=== PATIENT | male | born 1990 | race African-American/Black ===

== ENCOUNTER 2018-12-22 05:16 | Emergency (ER) | payer OTHER ==
[2018-12-22] MEDS ORDERED: IOVERSOL 320 100 ML VIAL IVP ONE ×3 (05:17→06:31)
--- NOTE | 2018-12-22 05:31 | ED Physician Documentation ---
PD HPI NECK PAIN - Stated complaint Stated Complaint: NECK PX - Chief complaint Chief Complaint: Wound - History obtained from History obtained from: Patient - History of Present Illness Timing - onset: How many days ago (2-3) Timing - duration: Days Timing - details: Gradual onset Pain level now: 6 Location: Upper, Mid, Right Quality: Pain Associated symptoms: No: Fever, Weakness, Numbness, Incontinent of urine, Unable to urinate, Hematuria, Incontinent of stool Improves with: Rest, Position Worsened by: Movement, Palpation Similar symptoms before: Has not had sx before Recently seen: Not recently seen - Additional information Additional information: c/o right-sided upper neck pain and swelling, tenderness. denies trauma, denies h/o similar symptoms. gradual onset 2-3 days ago and gradually progressive. Review of Systems Constitutional: reports: Reviewed and negative Cardiac: reports: Reviewed and negative Respiratory: reports: Reviewed and negative Skin: reports: Reviewed and negative Musculoskeletal: reports: Neck pain PD PAST MEDICAL HISTORY - Past Medical History Past Medical History: No - Past Surgical History Past Surgical History: No - Present Medications Home Medications: Ambulatory Orders Medication Instructions Recorded Confirmed Cephalexin [Keflex] 500 mg PO Q6H #39 capsule 12/22/18 HYDROcod/ACETAM 5/325 [[place] 5/325] 1 - 2 ea PO Q6H PRN #15 tablet 12/22/18 Ibuprofen 600 mg PO Q6HR PRN #20 tablet 12/22/18 Sulfamethox/Trimeth 800/160 1 each PO BID #19 tablet 12/22/18 [Bactrim Ds 800/160] - Allergies Allergies/Adverse Reactions: Allergies Allergy/AdvReac Type Severity Reaction Status Date / Time No Known Drug Allergies Allergy Verified 12/22/18 05:24 - Social History Does the pt smoke?: No Smoking Status: Never smoker Does the pt drink ETOH?: No Does the pt have substance abuse?: No - Immunizations Immunizations are current?: Yes - POLST Patient has POLST: No PD ED PE NORMAL - Vitals Vital signs reviewed: Yes (pulse on my exam is 60-70 bpm) - General General: Alert and oriented X 3, No acute distress, Well developed/nourished - HEENT HEENT: Atraumatic, Moist mucous membranes, Pharynx benign - Neck Neck: Supple, no meningeal sign - Cardiac Cardiac: RRR - Derm Derm: Normal color, Warm and dry, No rash - Neuro Neuro: No motor deficit, No sensory deficit PD ED PE EXPANDED - HEENT HEENT Visual: 1 - swelling, tenderness Results - Vitals Vitals: Vital Signs - 24 hr 12/22/18 12/22/18 12/22/18 05:20 07:09 08:24 Temperature 36.3 C L 37.2 C Heart Rate 9 L 86 78 Respiratory 16 18 15 Rate Blood Pressure 152/94 H 161/97 H 149/95 H O2 Saturation 98 99 100 Oxygen O2 Source Room air - Labs Labs: Laboratory Tests 12/22/18 12/22/18 05:55 05:55 WBC 10.9 H RBC 4.84 Hgb 14.1 Hct 42.6 MCV 88.0 MCH 29.2 MCHC 33.1 RDW 12.9 Plt Count 313 MPV 7.6 Neut # (Auto) 7.5 H Lymph # (Auto) 2.0 [place] # (Auto) 1.2 H Eos # (Auto) 0.1 Baso # (Auto) 0.1 Absolute Nucleated RBC 0.01 Nucleated RBC % 0.1 Sodium 135 Potassium 3.6 Chloride 98 L Carbon Dioxide 26 Anion Gap 11.0 BUN 10 Creatinine 0.8 Estimated GFR (MDRD) 141 Glucose 219 H Calcium 9.3 - Rads (name of study) CT neck (soft tissue) with IV contrast Radiology: Prelim report reviewed, See rad report PD MEDICAL DECISION MAKING - ED course Complexity details: reviewed results, re-evaluated patient, considered differential, d/w patient ED course: afebrile, minimally elevated WBC (0.1 above normal), with significant swelling and tenderness on exam that CT results suggest cellulitis without abscess. Patient advised of these results as well as hyperglycemia Departure - Departure Disposition: 01 Home, Self Care Clinical Impression: Cellulitis Condition: Good Instructions: ED Infec Skin Cellulitis Follow-Up: RENITA Izquierdo [Provider Group] Prescriptions: Ibuprofen 600 mg PO Q6HR PRN #20 tablet PRN Reason: Pain Cephalexin [Keflex] 500 mg PO Q6H #39 capsule HYDROcod/ACETAM 5/325 [[place] 5/325] 1 - 2 ea PO Q6H PRN #15 tablet PRN Reason: Pain Sulfamethox/Trimeth 800/160 [Bactrim Ds 800/160] 1 each PO BID #19 tablet Forms: Activity restrictions Discharge Date/Time: 12/22/18 08:25
[2018-12-22 06:00] LABS: BASOPHILS # (AUTO) 0.1 10^3/uL (0.0-0.1); BASOPHILS % (AUTO) 0.9 %; EOSINOPHILS # (AUTO) 0.1 10^3/uL (0.0-0.7); EOSINOPHILS % (AUTO) 1.3 %; HGB - HEMOGLOBIN 14.1 g/dL (14.0-18.0); LYMPHOCYTES % (AUTO) 18.3 %; MEAN CORPUSCULAR HEMOGLOBIN 29.2 pg (27.0-31.0); MEAN CORPUSCULAR HGB CONC 33.1 g/dL (32.0-36.0); MEAN PLATELET VOLUME 7.6 fL (7.4-11.4); MONOCYTES # (AUTO) 1.2 10^3/uL (0.0-1.0); NEUTROPHILS # (AUTO) 7.5 10^3/uL (1.5-6.6); NEUTROPHILS % (AUTO) 68.5 %; PLT - PLATELET COUNT 313 10^3/uL (130-450); RED BLOOD COUNT 4.84 10^6/uL (4.70-6.10); RED CELL DISTRIBUTION WIDTH 12.9 % (12.0-15.0); WHITE BLOOD COUNT 10.9 x10^3/uL (4.8-10.8)
[2018-12-22 06:07] LABS: CALCIUM 9.3 mg/dL (8.5-10.3); CREATININE 0.8 mg/dL (0.6-1.2)
--- NOTE | 2018-12-22 07:02 | CT Report ---
Reason: right neck/scalp swelling, tenderness Procedure Date: 12/22/2018 Accession Number: [id number] / [id number] Procedure: CT - SOFT TISSUE NECK W CPT Code: FULL RESULT: EXAM: CT SOFT TISSUE NECK WITH CONTRAST. EXAM DATE: 12/22/2018 06:33 AM. HISTORY: Right neck/scalp swelling and tenderness. COMPARISONS: None. TECHNIQUE: Routine soft tissue neck CT protocol. Reconstructions: Coronal and sagittal. IV contrast: [id number]. In accordance with CT protocol optimization, one or more of the following dose reduction techniques were utilized for this exam: automated exposure control, adjustment of mA and/or KV based on patient size, or use of iterative reconstructive technique. FINDINGS: Visualized Intracranial Contents: Unremarkable. Orbits: Symmetric and unremarkable. Sinuses: Visualized paranasal sinuses and mastoid air cells are clear. Oral cavity: The visualized oral cavity is unremarkable. The floor of the mouth is symmetric. Pharynx: Pharyngeal mucosa is unremarkable. The infratemporal fossa, parapharyngeal spaces, and retropharyngeal space are unremarkable. The base of the tongue is symmetric and unremarkable. The airway is patent. Larynx: Larynx and supraglottic airway are patent without mass lesion. Vocal cords are symmetric. The visualized trachea is unremarkable. Parotid and Submandibular Glands: Symmetric and unremarkable. Lymph Nodes: There are no abnormally enlarged cervical lymph nodes. Soft tissues: There is soft tissue swelling and inflammatory change involving the subcutaneous soft tissues in the right suboccipital region with thickening of the overlying skin. This is suggestive of cellulitis. There is no localized rim-enhancing fluid collection to indicate an abscess. There are 2 small mildly enhancing right suboccipital lymph nodes in this region measuring 8-9 mm in diameter each. These are likely reactive. No evidence of lymph node necrosis or cystic change. The inflammatory change extends to involve the superficial most right posterior paraspinous muscles in the posterior aspect of the right sternocleidomastoid muscle. Soft tissues are otherwise unremarkable brain Vascular Structures: Unremarkable. Thyroid Gland: Normal. Lung: The visualized lung apices are clear. Bones: No evidence of acute fracture or malalignment. Other: None. IMPRESSION: 1. There is soft tissue swelling and inflammatory change involving the subcutaneous soft tissues in the right suboccipital region with thickening of the overlying skin suggesting cellulitis. Inflammatory change extends slightly deep to the subcutaneous fat to involve the adjacent right posterior paraspinous muscles and the posterior aspect of the right sternocleidomastoid muscle. There is no rim-enhancing fluid collection to suggest an abscess. 2. Neck soft tissues are otherwise unremarkable. RADIA
[2018-12-22] MEDS ORDERED: cefTRIAXone 1 GM in SODIUM CHLORIDE 0.9% MINIBAG 100 ML IV STA (07:26)
[2018-12-22] MEDS ORDERED: IBUPROFEN 800 MG TABLET PO STA (07:27)
[2018-12-22] MEDS ORDERED: cephALEXin 250 MG CAPSULE PO STA (07:27)
[2018-12-22] MEDS ORDERED: SULFAMETH/TRIMETH DS 800/160 MG TABLET PO STA (07:27)
[2018-12-22 08:25] VITALS: BP 149/95
== END 2018-12-22 08:25 | disposition home or self-care (01) ==
LOC: ED 05:16
DX: L03.221 Cellulitis of neck (principal)
CPT/HCPCS: 70491; 80048; 85025; 96365; 99283; 99284; A9270; Q9967

== ENCOUNTER 2020-11-25 07:00 | Outpatient (CLI) | payer OTHER ==
--- NOTE | 2020-11-25 15:36 | XRAY Report ---
PROCEDURE: Lumbar Spine 2 View INDICATIONS: ACUTE LOW BACK PX TECHNIQUE: 2 views of the lumbar spine were acquired. COMPARISON: None. FINDINGS: Bones: 5 [id number] vertebrae are present. There is mild leftward curvature of lumbar spine dario tered at L3 level.. No vertebral body compression fractures. No suspicious bony lesions. Soft tissues: Overlying bowel gas pattern is normal. No suspicious soft tissue calcifications. IMPRESSION: Suggestion of very mild leftward curvature of lumbar spine centered at L3 level. No comp ression fracture or spondylolisthesis. Reviewed by: Philippe Shin MD on 11/25/2020 3:35 PM PDT Approved by: Philippe Shin MD on 11/25/2020 3:35 PM PDT Station ID: [id number]
== END 2020-11-25 23:59 | disposition home or self-care (01) ==
LOC: DI.N 07:00
PROVIDERS: ATTEND Family Medicine
DX: M54.5 Low back pain (principal)